=== PATIENT | female | born 1985 | race Caucasian/White ===

== ENCOUNTER 2016-03-31 10:48 | Emergency (ER) | payer OTHER ==
[2016-03-31 11:05] VITALS: BP 114/67; PULSE 86; TEMP 98.7; BMI 33.5
--- NOTE | 2016-03-31 13:22 | PDOC ---
History of Present Illness - General Chief Complaint: Cold Symptoms Stated Complaint: COUGH CHEST PAIN Time Seen by Provider: 03/31/16 13:05 History Source: Patient - History of Present Illness Timing/Duration: reports: yesterday Associated Symptoms: reports: cough, sore throat. denies: chest pain/soreness, earache, fever/chills, headache, nasal congestion, nasal drainage, shortness of breath, wheezing Past History - Past Medical History Allergies/Adverse Reactions: Allergies Allergy/AdvReac Type Severity Reaction Status Date / Time No Known Drug Allergies Allergy Verified 03/31/16 11:05 Home Medications: Ambulatory Orders Albuterol Sulfate Inhaler - [Ventolin HFA Inhaler -] 1 - 2 inh PO Q4H #1 inhaler 03/31/16 Anemia: No Asthma: No Cancer: No Cardiac Disorders: No CVA: No COPD: No DVT: No Dementia: No Diabetes: No Dialysis: No HTN: No Hypercholesterolemia: No HIV: No Kidney Stones: No Psychiatric Problems: No Seizures: No Thyroid Disease: No - Surgical History Abdominal Surgery: Yes (LAP BAND) Cholecystectomy: Yes - Reproductive History (#): 6 Para: 2 Spontaneous : 2 - Immunization History Immunization Up to Date: Yes - Psycho/Social/Smoking Cessation Hx Anxiety: Yes Suicidal Ideation: No Smoking Status: No Smoking History: Never smoked Have you smoked in the past 12 months: No Number of Cigarettes Smoked Daily: 2 Information on smoking cessation initiated: No 'Breaking Loose' booklet given: 05/15/15 Hx Alcohol Use: No Drug/Substance Use Hx: No Substance Use Type: None Hx Substance Use Treatment: No Respiratory Specific PMHX - Complaint Specific PMHX Angina: No Review of Systems - Review of Systems Constitutional: No: Chills, Fever HEENTM: Yes: Throat Pain. No: Ear Pain Respiratory: Yes: Cough. No: Shortness of Breath, Wheezing *Physical Exam - Vital Signs Last Vital Signs Temp Pulse Resp BP Pulse Ox 98.7 F 86 18 114/67 100 03/31/16 11:03 03/31/16 11:03 03/31/16 11:03 03/31/16 11:03 03/31/16 11:03 - Physical Exam General Appearance: Yes: Appropriately Dressed. No: Apparent Distress HEENT: positive: Normal ENT Inspection, Normal Voice, Pharynx Normal. negative : Scleral Icterus (R), Scleral Icterus (L) Neck: positive: Supple. negative: Lymphadenopathy (R), Lymphadenopathy (L) Respiratory/Chest: positive: Lungs Clear, Normal Breath Sounds. negative: Respiratory Distress, Wheezing Integumentary: positive: Dry, Warm Neurologic: positive: Fully Oriented, Alert, Normal Mood/Affect Medical Decision Making - Medical Decision Making 03/31/16 13:30 31-year-old female, history of asthma, no admissions or intubations, presenting with cough with burning to throat for 2 days. No ear pain, fever, chills, shortness of breath or wheezing. Patient is a mother of 3 children who currently has similar symptoms at home. Patient well-appearing and stable with unremarkable exam. DC with supportive treatment for most likely viral URI. Patient requesting refill on her asthma pump. 03/31/16 13:31 *DC/Admit/Observation/Transfer Diagnosis at time of Disposition: URI (upper respiratory infection) Qualifiers: URI type: unspecified viral URI Qualified Code(s): J06.9 - Acute upper respiratory infection, unspecified - Discharge Dispostion Disposition: HOME Condition at time of disposition: Good - Prescriptions Prescriptions: Albuterol Sulfate Inhaler - [Ventolin HFA Inhaler -] 1 - 2 inh PO Q4H #1 inhaler - Referrals Referrals: Gerry Cisneros MD [Primary Care Provider] - - Patient Instructions Printed Discharge Instructions: DI for Viral Upper Respiratory Infection -- Adult Additional Instructions: Take [id number]-[id number] medications as needed for symptoms
--- NOTE | 2016-04-02 16:01 | EKG ---
Test Reason : Blood Pressure : / mmHG Vent. Rate : 080 BPM Atrial Rate : 080 BPM P-R Int : 174 ms QRS Dur : 100 ms QT Int : 358 ms P-R-T Axes : 046 045 024 degrees QTc Int : 412 ms NORMAL SINUS RHYTHM NORMAL ECG NO PREVIOUS ECGS AVAILABLE Confirmed by JUWAN CHAHAL MD ([id number]) on 04/02/2016 4:01:28 PM Referred By: Confirmed By:JUWAN CHAHAL MD
== END 2016-03-31 13:24 | disposition home or self-care (01) ==
LOC: JERFT 10:48
DX: J06.9 Acute upper respiratory infection, unspecified (principal)
CPT/HCPCS: 93005; 93010; 99281-25

== ENCOUNTER 2019-10-04 11:04 | Emergency (ER) | payer OTHER ==
--- NOTE | 2019-10-04 11:14 | PDOC ---
Rapid Medical Evaluation Chief Complaint: Injury Time Seen by Provider: 10/04/19 11:12 Medical Evaluation: Allergies Allergy/AdvReac Type Severity Reaction Status Date / Time No Known Drug Allergies Allergy Verified 03/31/16 11:05 10/04/19 11:13 CC: slipped and fell,now with left knee pain Exam: full extension, lrom with flexion, tender to medial aspect of patella Plan: xray Discharge Disposition - Diagnosis Knee injury - Discharge Dispostion Condition at time of disposition: Stable - Referrals - Patient Instructions - Post Discharge Activity
[2019-10-04 11:15] VITALS: BP 111/65; PULSE 70; TEMP 98.4; BMI 29.8
[2019-10-04] MEDS ORDERED: KETOROLAC TROMETHAMINE 60 MG/2 ML VIAL IM ONE (11:59)
--- NOTE | 2019-10-04 12:04 | PDOC ---
History of Present Illness - General Chief Complaint: Injury Stated Complaint: FALL Time Seen by Provider: 10/04/19 11:12 History Source: Patient Exam Limitations: Clinical Condition - History of Present Illness Initial Comments: 10/04/19 11:59 Patient with no significant past medical history present with complaint of pain to left knee pain status post slip and fall while cleaning a house falling in the kitchen on left knee yesterday. Patient denies hitting head or loss of consciousness. Patient report did not feel any knee pain yesterday when incident happened until overnight when she started having worsening left knee pain. Patient did not take anything for pain. Denies numbness or tingling sensation. Reported increased pain to left knee with ambulation. Denies any other symptoms Occurred: reports: yesterday Past History - Medical History Allergies/Adverse Reactions: Allergies Allergy/AdvReac Type Severity Reaction Status Date / Time codeine Allergy Verified 10/04/19 11:28 No Known Drug Allergies Allergy Verified 03/31/16 11:05 Home Medications: Ambulatory Orders Albuterol Sulfate Inhaler - [Ventolin HFA Inhaler -] 1 - 2 inh PO Q4H #1 inhaler 03/31/16 Meloxicam 7.5 mg PO BID PRN #20 tablet 10/04/19 Anemia: No Asthma: No Cancer: No Cardiac Disorders: No CVA: No COPD: No DVT: No Dementia: No Diabetes: No Dialysis: No HTN: No Hypercholesterolemia: No Kidney Stones: No Psychiatric Problems: No Seizures: No Thyroid Disease: No - Surgical History Abdominal Surgery: Yes (LAP BAND) Cholecystectomy: Yes - Reproductive History (#): 6 Para: 2 Spontaneous : 2 - Immunization History Immunization Up to Date: Yes - Psycho-Social/Smoking History Smoking Status: No Smoking History: Unknown if ever smoked Have you smoked in the past 12 months: No Number of Cigarettes Smoked Daily: 2 Information on smoking cessation initiated: No 'Breaking Loose' booklet given: 05/15/15 - Substance Abuse Hx (Audit-C & DAST Scrn) How often the patient has a drink containing alcohol: 2-4 times / month Number of drinks the patient has on a typical day: 1 or 2 How often the patient has six or more drinks on one occasion: Monthly Score: In Men: 4 or > Positive; In Women: 3 or > Positive: 4 Screen Result (Pos requires Nsg. Audit-10AR): Positive In the last yr the pt used illegal drug/Rx for NonMed reason: No Score: Yes response is considered Positive: 0 Screen Result (Positive result requires Nsg. DAST-10): Negative Trauma Specific PMHX - Complaint Specific PMHX Arthritis: No Review of Systems - Review of Systems Able to Perform ROS?: Yes Is the patient limited Guinean proficient: No Constitutional: No: Chills, Fever, Malaise HEENTM: No: Symptoms Reported, See HPI, Eye Pain, Blurred Vision, Tearing, Recent change in vision, Double Vision, Cataracts, Ear Pain, Ocular Prothesis, Ear Discharge, Nose Pain, Nose Congestion, Tinnitus, Nose Bleeding, Hearing Loss, Throat Pain, Throat Swelling, Mouth Pain, Dental Problems, Difficulty Swallowing, Mouth Swelling, Other Respiratory: No: Symptoms reported, See HPI, Cough, Orthopnea, Shortness of Breath, SOB with Exertion, SOB at Rest, Stridor, Wheezing, Productive cough, Hemoptysis, Other Cardiac (ROS): No: Symptoms Reported Musculoskeletal: Yes: Symptoms Reported, See HPI, Joint Pain (left knee), Joint Swelling (left knee) Integumentary: No: Symptoms Reported, Bruising, Erythema Neurological: No: Symptoms reported, Numbness, Paresthesia, Weakness All Other Systems: Reviewed and Negative *Physical Exam - Vital Signs Last Vital Signs Temp Pulse Resp BP Pulse Ox 98.4 F 70 18 111/65 100 10/04/19 11:11 10/04/19 11:11 10/04/19 11:11 10/04/19 11:11 10/04/19 11:11 - Physical Exam 10/04/19 12:10 GENERAL: Well developed, well nourished. Awake and alert in mild acute distress. PULMONARY: No evidence of respiratory distress. MUSCULOSKELETAL : Moderate tenderness to medial collateral ligament of left knee with mild swelling over anterior patella of left knee. No skin erythema. No joint effusion. Negative anterior and posterior drawer test of left knee. No joint laxity EXTREMITIES: No cyanosis. No clubbing. No edema. No calf tenderness. SKIN: Warm and dry. Normal capillary refill. No bruising, skin erythema or open wound to left lower extremity NEUROLOGICAL: Alert, awake, appropriate. No motor deficits in the lower extremities. Gait is normal with mild limp from left knee pain PSYCHIATRIC: Cooperative. Good eye contact. Appropriate mood and affect. General Appearance: Yes: Nourished, Appropriately Dressed, Mild Distress Medical Decision Making - Medical Decision Making 10/04/19 12:09 Patient with no significant past medical history present with complaint of pain to left knee pain status post slip and fall while cleaning a house falling in the kitchen on left knee yesterday. Patient denies hitting head or loss of consciousness. Patient report did not feel any knee pain yesterday when incident happened until overnight when she started having worsening left knee pain. Patient did not take anything for pain. Denies numbness or tingling sensation. Reported increased pain to left knee with ambulation. Denies any other symptoms Exam significant for moderate tenderness over medial collateral ligament of left knee with mild swelling to medial aspect of left knee. No joint effusion. Negative anterior and posterior drawer test of left knee. No skin erythema. Patient symptoms likely knee sprain. X-ray of the knee shows no acute abnormality. Toradol 60 mg IM ordered for pain. Left knee wrapped with Andrew bandage. Crutches provided to patient. Patient stable for discharge on meloxicam PRN for pain with advised to keep left leg elevated and hot compresses with orthopedics follow-up as needed. Patient stable for discharge Discharge - Discharge Information Problems reviewed: Yes Clinical Impression/Diagnosis: Knee injury Qualifiers: Encounter type: initial encounter Laterality: left Qualified Code(s): S89.92XA - Unspecified injury of left lower leg, initial encounter Condition: Stable Disposition: HOME - Admission No - Additional Discharge Information Prescriptions: Meloxicam 7.5 mg PO BID PRN #20 tablet PRN Reason: knee pain - Follow up/Referral Referrals: Ran Resendez DO [Staff Physician] - - Patient Discharge Instructions Patient Printed Discharge Instructions: How to Use an Elastic Bandage-Knee Sprain, DI for Knee Sprain Additional Instructions: x-ray of your knee shows no acute fracture or dislocation. pain is likely knee sprain. take prescribed medications as needed for pain. keep left leg elevated and apply heat to knee as needed. use provided crutches to keep weight of left knee for the next 3 days. follow-up with referred orthopedics if symptoms persist for more than 3 days - Post Discharge Activity Work/Back to School Note: Back to Work
[2019-10-04] MEDS ORDERED: KETOROLAC TROMETHAMINE 60 MG/2 ML VIAL ONE (12:09)
== END 2019-10-04 12:20 | disposition home or self-care (01) ==
LOC: SUPCPDRO 11:04 → JERFT 11:04
PROC: 3E0233Z Introduction of Anti-inflammatory into Muscle, Percutaneous Approach (ICD-10-PCS; principal; 2019-10-04)
DX: S89.92XA Unspecified injury of left lower leg, initial encounter (principal)
CPT/HCPCS: 73562-TC-LT-FY; 99285-25

== ENCOUNTER 2020-08-13 06:03 | Day surgery (SDC) | payer OTHER ==
[~2020-08-13 06:03] MED LIST: BUPIVACAINE HCL/EPINEPHRINE/PF 30 ML VIAL IJ ONE
[2020-08-13 06:41] VITALS: BMI 27.4
[2020-08-13] MEDS ORDERED: BUPIVACAINE HCL/EPINEPHRINE/PF 30 ML VIAL IJ ONE (07:11)
[2020-08-13] MEDS ORDERED: EPINEPHrine 1:1,000 1 MG/1 ML - 30ML VIAL (INJECTION) ONE (07:11)
[2020-08-13] MEDS ORDERED: fentaNYL CITRATE 250 MCG/5 ML VIAL ONE (07:17)
[2020-08-13] MEDS ORDERED: SUCCINYLCHOLINE CHLORIDE 200 MG/10 ML SYRINGE ONE (07:17)
[2020-08-13] MEDS ORDERED: ROCURONIUM BROMIDE 50 MG/5 ML SYRINGE ONE (07:17)
[2020-08-13] MEDS ORDERED: PROPOFOL 20 ML ONE ×2 (07:17)
[2020-08-13] MEDS ORDERED: DEXAMETHASONE SOD PHOSPHATE 4 MG/1 ML VIAL ONE (07:19)
[2020-08-13] MEDS ORDERED: ONDANSETRON 4 MG/2 ML VIAL ONE ×2 (07:20→09:04)
[2020-08-13] MEDS ORDERED: LIDOCAINE HCL/PF 2% SDV 5ML VIAL ONE (07:20)
[2020-08-13] MEDS ORDERED: ePHEDrine SULFATE 50 MG/1 ML AMPULE ONE (07:25)
[2020-08-13] MEDS ORDERED: EPHEDRINE SULFATE/0.9% NACL/PF 50 MG/10 ML SYRINGE NR ONE (07:25)
[2020-08-13] MEDS ORDERED: MIDAZOLAM HCL 2 MG/2 ML SINGLE DOSE VIAL ONE (07:28)
[2020-08-13] MEDS ORDERED: traMADol HCL 50 MG TABLET PO SCH ×2 (09:15→16:00)
[2020-08-13] MEDS ORDERED: ACETAMINOPHEN 325 MG TABLET (FP) PO SCH ×2 (09:15→16:00)
[2020-08-13] MEDS ORDERED: oxyCODONE HCL 5 MG TABLET PO PRN (09:36)
[2020-08-13] MEDS ORDERED: ONDANSETRON 4 MG/2 ML VIAL IVPUSH PRN (09:36)
[2020-08-13] MEDS ORDERED: LACTATED RINGERS SOLUTION 1,000 ML IV SCH (09:45)
[2020-08-13] MEDS ORDERED: oxyCODONE HCL 5 MG TABLET ONE (10:24)
[2020-08-13 11:28] VITALS: TEMP 97.9
[2020-08-13 11:30] VITALS: BP 117/66; PULSE 70
== END 2020-08-13 11:45 | disposition home or self-care (01) ==
LOC: FASU 06:03
PROVIDERS: ATTEND Orthopaedic Surgery
PROC: 0SBD4ZZ Excision of Left Knee Joint, Percutaneous Endoscopic Approach (ICD-10-PCS; principal; 2020-08-13 08:02)
DX: M94.262 Chondromalacia, left knee (principal); M65.9 Synovitis and tenosynovitis, unspecified
CPT/HCPCS: 81025; 94760

== ENCOUNTER 2021-05-28 11:19 | Emergency (ER) | payer OTHER ==
[2021-05-28 11:27] VITALS: BP 109/58; PULSE 84; TEMP 97.8; BMI 29.7
[2021-05-28] MEDS ORDERED: ONDANSETRON 4 MG/2 ML VIAL IVPB ONE (11:55)
[2021-05-28] MEDS ORDERED: SODIUM CHLORIDE 1,000 ML IV STA (11:55)
[2021-05-28] MEDS ORDERED: ACETAMINOPHEN 1000 MG/100 ML BAG IVPB ONE (11:55)
[2021-05-28] MEDS ORDERED: ONDANSETRON 4 MG/2 ML VIAL ONE (12:21)
[2021-05-28] MEDS ORDERED: ACETAMINOPHEN INJECTION 100 ML IVPB ONE (12:21)
[2021-05-28 13:16] LABS: BASO % 1.1 % (0-2.0); EOS % 3.8 % (0-4.5); HEMATOCRIT 39.8 % (32.4-45.2); HEMOGLOBIN 13.2 GM/dL (10.7-15.3); MCH 30.4 pg (25.7-33.7); MCHC 33.2 g/dl (32.0-36.0); MEAN CELL VOLUME 91.6 fl (80-96); MEAN PLT VOLUME 9.3 fl (7.5-11.1); MONO % 10.3 % (3.8-10.2); NEUT % 45.8 % (42.8-82.8); PLATELET COUNT 229 10^3/uL (134-434); RBC 4.35 M/mm3 (3.60-5.2); RDW 13.1 % (11.6-15.6); WHITE BLOOD COUNT 3.7 K/mm3 (4.0-10.0)
[2021-05-28 13:20] LABS: EPI CELLS >36 /uL (0-25.1); HCG,QUALITATIVE URINE Negative; HYALINE CASTS 2 /uL (0-3.1); URINE APPEARANCE CLOUDY; URINE BACTERIA 1051 /uL (0-1359); URINE BILIRUBIN NEGATIVE (NEGATIVE); URINE COLOR YELLOW; URINE GLUCOSE (UA) NEGATIVE (NEGATIVE); URINE KETONE 2+ (NEGATIVE); URINE LEUK ESTERASE TRACE (NEGATIVE); URINE NITRITE NEGATIVE (NEGATIVE); URINE PROTEIN NEGATIVE (NEGATIVE); URINE RBC 6 /uL (0-23.9); URINE WBC 41 /uL (0-25.8)
[2021-05-28 13:30] LABS: CALCIUM 8.3 mg/dL (8.5-10.1)
[2021-05-28 13:31] LABS: ALBUMIN 3.7 g/dl (3.4-5.0); BLOOD UREA NITROGEN 3.7 mg/dL (7-18)
[2021-05-28 13:34] LABS: CREATININE 0.5 mg/dL (0.55-1.3)
[2021-05-28 13:35] LABS: BILIRUBIN,TOTAL 0.5 mg/dL (0.2-1); TOT PROT 6.6 g/dl (6.4-8.2)
[2021-05-28] MEDS ORDERED: IBUPROFEN 800 MG/8 ML IJ IVPB ONE ×2 (14:40→14:44)
== END 2021-05-28 15:55 | disposition home or self-care (01) ==
LOC: JER 11:19
PROC: 3E0333Z Introduction of Anti-inflammatory into Peripheral Vein, Percutaneous Approach (ICD-10-PCS; principal; 2021-05-28)
PROC: 3E0333Z Introduction of Anti-inflammatory into Peripheral Vein, Percutaneous Approach (ICD-10-PCS; 2021-05-28)
PROC: 3E033GC Introduction of Other Therapeutic Substance into Peripheral Vein, Percutaneous Approach (ICD-10-PCS; 2021-05-28)
PROC: 3E0337Z Introduction of Electrolytic and Water Balance Substance into Peripheral Vein, Percutaneous Approach (ICD-10-PCS; 2021-05-28)
DX: A09 Infectious gastroenteritis and colitis, unspecified (principal); R19.7 Diarrhea, unspecified
CPT/HCPCS: 36415; 74177-TC; 80053; 81003; 83690; 84703; 85025; 87086; 96361; 96374; 96375; 99285-25

== ENCOUNTER 2022-12-04 08:50 | Emergency (ER) | payer OTHER ==
[2022-12-04 08:59] VITALS: BP 117/50; PULSE 65; RESP 18; TEMP 98.5
[2022-12-04] MEDS ORDERED: ACETAMINOPHEN 1000 MG/100 ML BAG IVPB ONE (09:11)
[2022-12-04] MEDS ORDERED: SODIUM CHLORIDE 1,000 ML IV STA (09:11)
[2022-12-04] MEDS ORDERED: ONDANSETRON 4 MG/2 ML VIAL IVPUSH ONE (09:12)
[2022-12-04] MEDS ORDERED: FAMOTIDINE 20 MG/50 ML IVPB 20 MG/50 ML MG IVPB ONE (09:45)
[2022-12-04] MEDS ORDERED: ACETAMINOPHEN INJECTION 100 ML IVPB ONE (09:50)
[2022-12-04] MEDS ORDERED: FAMOTIDINE 10 MG/ML VIAL IVPB ONE (09:51)
[2022-12-04] MEDS ORDERED: ONDANSETRON 4 MG/2 ML VIAL ONE (09:51)
[2022-12-04 10:13] LABS: EPI CELLS 26 /uL (0-25.1); HYALINE CASTS 0 /uL (0-3.1); PH,URINE 7.5 (5.0-8.0); URINE APPEARANCE CLEAR; URINE BACTERIA 156 /uL (0-1359); URINE BILIRUBIN 1+ (NEGATIVE); URINE COLOR DK YELLOW; URINE GLUCOSE (UA) NEGATIVE (NEGATIVE); URINE KETONE TRACE (NEGATIVE); URINE LEUK ESTERASE TRACE (NEGATIVE); URINE NITRITE NEGATIVE (NEGATIVE); URINE PROTEIN TRACE (NEGATIVE); URINE RBC 18 /uL (0-23.9); URINE WBC 8 /uL (0-25.8)
[2022-12-04 10:16] LABS: BASO % 1.1 % (0-2.0); EOS % 2.1 % (0-4.5); HEMATOCRIT 38.3 % (32.4-45.2); HEMOGLOBIN 12.9 GM/dL (10.7-15.3); LYMPH % 24.4 % (8-40); MCH 30.4 pg (25.7-33.7); MCHC 33.7 g/dl (32.0-36.0); MEAN CELL VOLUME 90.1 fl (80-96); MEAN PLT VOLUME 9.2 fl (7.5-11.1); MONO % 6.3 % (3.8-10.2); NEUT % 66.1 % (42.8-82.8); PLATELET COUNT 249 10^3/uL (134-434); RBC 4.25 M/mm3 (3.60-5.2); RDW 13.2 % (11.6-15.6); WHITE BLOOD COUNT 8.4 K/mm3 (4.0-10.0)
[2022-12-04 10:25] LABS: CALCIUM 8.9 mg/dL (8.5-10.1)
[2022-12-04 10:26] LABS: ALBUMIN 4.3 g/dl (3.4-5.0); BLOOD UREA NITROGEN 4.7 mg/dL (7-18); MAGNESIUM 2.1 mg/dL (1.8-2.4)
[2022-12-04 10:29] LABS: CREATININE 0.5 mg/dL (0.55-1.3)
[2022-12-04 10:31] LABS: BILIRUBIN,TOTAL 0.9 mg/dL (0.2-1); TOT PROT 6.9 g/dl (6.4-8.2)
[2022-12-04] MEDS ORDERED: KETOROLAC TROMETHAMINE 30 MG/1 ML VIAL IM ONE (10:41)
[2022-12-04] MEDS ORDERED: KETOROLAC TROMETHAMINE 30 MG/1 ML VIAL ONE (10:54)
== END 2022-12-04 12:00 | disposition home or self-care (01) ==
LOC: JER 08:50
PROC: 3E033GC Introduction of Other Therapeutic Substance into Peripheral Vein, Percutaneous Approach (ICD-10-PCS; principal; 2022-12-04)
PROC: 3E033NZ Introduction of Analgesics, Hypnotics, Sedatives into Peripheral Vein, Percutaneous Approach (ICD-10-PCS; 2022-12-04)
PROC: 3E033GC Introduction of Other Therapeutic Substance into Peripheral Vein, Percutaneous Approach (ICD-10-PCS; 2022-12-04)
PROC: 3E0337Z Introduction of Electrolytic and Water Balance Substance into Peripheral Vein, Percutaneous Approach (ICD-10-PCS; 2022-12-04)
PROC: 3E0233Z Introduction of Anti-inflammatory into Muscle, Percutaneous Approach (ICD-10-PCS; 2022-12-04)
DX: R51.9 Headache, unspecified (principal); R11.2 Nausea with vomiting, unspecified; H53.19 Other subjective visual disturbances; R10.10 Upper abdominal pain, unspecified; J01.90 Acute sinusitis, unspecified; Z20.822 Contact with and (suspected) exposure to COVID-19
CPT/HCPCS: 0241U-QW; 36415; 80053; 81003; 83690; 83735; 84703; 85025; 87086; 99284-25

== ENCOUNTER 2023-03-09 08:30 | Emergency (ER) | payer OTHER ==
[2023-03-09 09:15] VITALS: BP 120/70; PULSE 83; RESP 18; TEMP 98.1
[2023-03-09] MEDS ORDERED: LIDOCAINE HCL 2% JELLY 10 ML CARTRIDGE PR ONE (10:22)
[2023-03-09] MEDS ORDERED: HYDROCORTISONE ACETATE 25 MG/SUPP.RECT PR ONE (10:22)
[2023-03-09] MEDS ORDERED: HYDROCORTISONE 2.5% TOPICAL CREAM 30 GM TUBE TP SCH (10:30)
[2023-03-09] MEDS ORDERED: LIDOCAINE HCL 2% JELLY 11 ML TP ONE (10:33)
== END 2023-03-09 12:40 | disposition home or self-care (01) ==
LOC: JER 08:30
DX: K62.89 Other specified diseases of anus and rectum (principal); K64.8 Other hemorrhoids; K64.4 Residual hemorrhoidal skin tags
CPT/HCPCS: 99283-25